=== PATIENT | male | born 1970 | race Caucasian/White ===

== ENCOUNTER 2025-04-16 23:16 | Emergency (ER) | payer OTHER, SELFPAY ==
[2025-04-16 23:18] VITALS: BP 95/79; PULSE 97; RESP 18; TEMP 37; O2SAT 94; BMI 21.4
[2025-04-16 23:20] VITALS: BP 95/79; PULSE 97; RESP 18; TEMP 37; O2SAT 94
--- NOTE | 2025-04-16 23:45 | EX.ED.DYSGE1 ---
HPI History of Present Illness Chief Complaint: Fatigue Detail of Chief Complaint: Fatigue and not feeling well Informant: patient Narrative Narrative: Patient presents to the emergency department complaint not feeling well since yesterday. She describes a mild cough that is mostly nonproductive. He denies fever. He is vomited twice today. Denies diarrhea. Denies significant abdominal pain. Also has some mild shortness of breath. He has history of COPD. Describes a headache. He describes generalized weakness. [facility] Medical History (Updated 04/17/25 @ 01:[address] Stephanie Erwin, DO) Collapsed lung COPD (chronic obstructive pulmonary disease) Home Medications ?Medication ?Instructions ?Recorded ?Last Taken ?Type albuterol sulfate 90 mcg/actuation 1 - 2 puff inhalation Q4H PRN PRN 04/25/15 Unknown Rx aerosol inhaler (Ventolin HFA) Wheezing ##1 levofloxacin 500 mg tablet 500 mg PO DAILY #7 tabs 04/25/15 Unknown Rx prednisone 20 mg tablet 60 mg (3 x 20 mg) PO DAILY ##15 04/25/15 Unknown Rx oxycodone-acetaminophen 5 mg-325 1 - 2 tab PO Q4H PRN PRN Pain #20 07/03/15 Unknown Rx mg tablet tabs tramadol 50 mg tablet 50 mg PO Q6H PRN PRN Pain #15 tabs 02/14/16 Unknown Rx levofloxacin 750 mg tablet 750 mg PO DAILY #6 tabs 04/17/25 Unknown Rx prednisone 20 mg tablet 20 mg PO BID #6 tabs 04/17/25 Unknown Rx Allergy/AdvReac Type Severity Reaction Status Date / Time ibuprofen AdvReac Nausea/Vom/ Verified 04/16/25 23:18 Diarrhea Social History Smoking Status: Current every day smoker tobacco type: cigarettes ROS ROS ED Review of Systems ROS Unobtainable: other Constitutional Constitutional ED: Reports lethargy; Denies chills, fever(s), sweats or weight loss Eyes Eyes: Denies blurry vision, change in vision or diplopia ENT ENT ED: Denies rhinorrhea or sore throat Cardiovascular Cardiovascular: Denies chest pain, orthopnea or racing heartbeat Respiratory/Chest Respiratory/Chest: Reports cough and dyspnea; Denies dyspnea on exertion, orthopnea or sputum Gastrointestinal Gastrointestinal: Reports nausea and vomiting; Denies abdominal pain or diarrhea Genitourinary Genitourinary ED: Denies dysuria, hematuria or urinary frequency Musculoskeletal Musculoskeletal: Denies arthralgias, back pain, myalgias or neck pain Integumentary Denies abscess, Abrasions or rash Neurologic Neurologic: Reports headache(s); Denies weakness Psychiatric Psychiatric: Denies anxiety, depression or suicidal thoughts Endocrine Endocrinology: Denies polydipsia, polyphagia or polyuria Hematologic/Lymphatic Hematologic/Lymphatic: Denies easy bleeding, easy bruising or lymphadenopathy Allergic/Immunologic Allergic/Immunologic ED: Denies mouth swelling, tongue swelling or urticaria EXAM Physical Exam Const Vital Signs: 04/16/25 23:18 04/16/25 23:20 04/16/25 23:49 Temperature 98.6 F 98.6 F Temperature Source Oral Oral Pulse Rate 97 97 Respiratory Rate 18 18 Respiratory Effort Normal Non-Labored Respiratory Depth Respiratory Pattern Normal Blood Pressure 95/79 95/79 Blood Pressure Mean 84 84 Pulse Ox 94 94 Oxygen Delivery Method Room Air Room Air 04/17/25 00:07 04/17/25 00:14 04/17/25 00:20 Temperature 98.6 F Temperature Source Oral Pulse Rate 82 66 Respiratory Rate 18 20 H Respiratory Effort Short of Breath Respiratory Depth Shallow Respiratory Pattern Normal Tachypnea Blood Pressure 112/70 Blood Pressure Mean 84 Pulse Ox 92 Oxygen Delivery Method Positive well nourished and well developed General Appearance ED: well developed and NAD HEENT Reports TM's clear and moist mucous membranes normocephalic and atraumatic; Negative for trauma or tenderness Tympanic Membrane ED: Yes TM's clear Eyes PERRL and EOMs intact bilaterally General Eye ED: Negative for pale conjunctiva or scleral icterus Neck no lymphadenopathy, supple and no JVD General: Negative for tenderness Chest Wall inspection of chest normal and palpation of chest normal Chest: Negative for tenderness Resp normal respiratory effort and clear to auscultation bilaterally Resp Narrative: Normal respiratory effort. No music publicist muscle use or retractions. Occasional faint expiratory wheezes noted. Effort and Inspection: Negative for respiratory distress or pain with movement Auscultation: wheezes; Negative for rhonchi or diminished lung sounds Cardio regular rate, regular rhythm, S1 normal heart sound, S2 normal heart sound and no murmurs Peripheral Pulses: pulses 2+ throughout GI normal to inspection, nondistended, normoactive bowel sounds, soft to palpation, non-tender, non-distended and no masses GI Narrative: Abdomen is nontender on exam. No rebound, rigidity, or peritoneal signs Back/Spine no CVA tenderness and no thoracic nor lumbar tenderness Extremity normal to inspection General Extremety ED: Negative for edema General Extremity: Negative for edema Neuro oriented x3, CN's II-XII intact bilaterally, no sensory deficits noted and gait normal Sensorium / Orientation: awake, alert, oriented to person, oriented to place and oriented to time Motor Exam: strength 5/5 throughout and strength abnormal Psych mental status grossly normal Skin no rashes or lesions noted and no wounds MDM MDM MDM Narrative Medical decision making narrative: Patient presents with cough headache shortness of breath symptoms that started yesterday. Cough at times productive of some yellow phlegm. He clinically looks well. He is not hypoxic. He has history of COPD. IV line established. He was given a DuoNeb aerosol. CBC with differential obtained showed white count 10.9 with hemoglobin 13.4 platelet count of 172. Chemistries unremarkable. COVID flu and RSV testing was negative. 1 view chest x-ray obtained showed bilateral lower lobe infiltrates. At this point he was started on Levaquin. He was started on prednisone. He will be dispensed an albuterol MDI. Suspect possibly early pneumonia. Lab Data Attestation: I reviewed the patient's lab results. Labs: Laboratory Results - last 24 hr 04/16/25 23:51 WBC 10.9 RBC 4.05 L Hgb 13.4 Hct 38.8 L MCV 95.8 H MCH 33.1 H MCHC 34.5 RDW Std Deviation 44.8 H RDW Coeff of Zahra 12.5 Plt Count 172 MPV 8.7 Immature Gran % (Auto) 0.500 Neut % (Auto) 77.7 H Lymph % (Auto) 12.2 L Mcdonough % (Auto) 9.0 Eos % (Auto) 0.1 Baso % (Auto) 0.5 Absolute Neuts (auto) 8.5 H Absolute Lymphs (auto) 1.33 Nucleated RBC % 0 Sodium 137 Potassium 4.0 Chloride 104 Carbon Dioxide 21.0 Anion Gap 13 BUN 15 Creatinine 1.25 H Estim Creat Clear Calc 63.12 Est GFR (MDRD) Non-Af 68 BUN/Creatinine Ratio 11.9 Glucose 117 H Calcium 8.8 Radiography Diagnostic Testing: Clinical Impression(s) from Imaging Studies Chest X-Ray 04/16/25 23:55 IMPRESSION: Possible bibasilar pneumonia, correlate for aspiration. Reading Location: [facility]-2 1 view chest x-ray obtained interpreted by myself as increased lung markings both lower lobes. Radiology in agreement. Discharge Plan Triage Chief Complaint: Fatigue Other Complaint: Shortness of Breath ED Provider: Stephanie Erwin Dx/Rx/DC Orders Clinical Impression: Pneumonia Instructions: ED Pneumonia (Adult) Prescriptions: New levofloxacin 750 mg tablet 750 mg PO DAILY Qty: 6 0RF prednisone 20 mg tablet 20 mg PO BID Qty: 6 0RF No Action prednisone 20 MG tablet 60 mg PO DAILY Qty: 15 0RF levofloxacin 500 MG tablet 500 mg PO DAILY Qty: 7 0RF albuterol sulfate [Ventolin HFA] 1 INHALER inhaler 1 - 2 puff inhalation Q4H PRN PRN (Reason: Wheezing) Qty: 1 0RF oxycodone-acetaminophen 1 TABLET tablet 1 - 2 tab PO Q4H PRN PRN (Reason: Pain) Qty: 20 0RF tramadol 50 MG tablet 50 mg PO Q6H PRN PRN (Reason: Pain) Qty: 15 0RF Primary Care Provider: Care Physician,No Primary Referrals: Azael Snyder MD [Med Staff - Active Staff] - 3-5 Days Care Physician,No Primary [Primary Care Provider] - Print Language: Luxembourgish Disposition Disposition: Home, Self Care
[2025-04-16] MEDS: 0.9% Normal Saline (1000mL) 1,000 ML 1000 ML IV (23:52)
--- NOTE | 2025-04-16 23:55 | RAD_ITS ---
PROCEDURE: CHEST 1 VIEW (PORTABLE) 04/17/2025 REASON FOR EXAM: DYSPNEA TECHNIQUE: Frontal view of the chest. COMPARISON: No FINDINGS: Severe bullous emphysema and smoking-related interstitial lung disease. Suspected bibasilar consolidation. No effusion or pneumothorax. Asymmetric right apical pleural thickening. Normal heart size. RAD/Chest 1 View (Portable) IMPRESSION: Possible bibasilar pneumonia, correlate for aspiration. Reading Location: [place] [id number]
[2025-04-16 23:58] LABS: Absolute Lymphocyte Count 1.33 X10^3/uL (0.83-4.51); Absolute Neutrophil Count 8.5 X10^3/uL (2.0-7.7); Basophil# 0.06 X10^3/uL; Basophil% 0.5 % (0-1); Eosinophil# 0.01 X10^3/uL; Eosinophils% 0.1 % (0-5); Hematocrit 38.8 % (40-54); Hemoglobin 13.4 g/dL (13.0-16.5); Lymphocyte # 1.33 X10^3/ul (0.83-4.51); Lymphocyte % 12.2 % (19-41); Mean Corp Hgb Conc 34.5 g/dL (32-36); Mean Corpuscular Hgb 33.1 pg (27.0-32.0); Mean Corpuscular Volume 95.8 fL (80-94); Mean Platelet Vol. 8.7 fl (6.2-12.0); Monocyte# 0.98 X10^3/uL; NRBC Flagged by Analyzer 0 % (0-5); Neutrophil % 77.7 % (47-70); Platelet Count 172 K/mm3 (150-450); RBC Distribution Width CV 12.5 % (11.6-14.6); RBC Distribution Width SD 44.8 fl (35.1-43.9); Red Blood Count 4.05 M/mm3 (4.6-6.2); White Blood Count 10.9 K/mm3 (4.4-11.0)
[2025-04-17] MEDS: Ipratropium/Albuterol Sulfate 3 ML AMPUL.NEB INHALATION (00:06)
[2025-04-17 00:07] VITALS: PULSE 82; RESP 18
[2025-04-17 00:18] LABS: Anion Gap 13 (5-15); BUN 15 mg/dL (4-19); BUN/Creat Ratio 11.9 RATIO (10-20); Calcium,Total 8.8 mg/dL (7.6-11.0); Chloride 104 mmol/L (98-108); Creatinine, Serum 1.25 mg/dL (0.70-1.20); EST Glomerular Filtration Rate 68 (>60); Estimated Creatinine Clearance 63.12 ml/min (50-250); Glucose 117 mg/dL (70-99); Sodium Level 137 mmol/L (133-145)
[2025-04-17 00:20] VITALS: BP 112/70; PULSE 66; RESP 20; TEMP 37; O2SAT 92
--- OUTSIDE RECORDS SUMMARY | 2025-04-17 00:30 | XMS RPT_ITS | CCD ---
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 Name Role Phone Unavailable Primary Care Provider UnavailRODRIGO Calloway Attending Unavailable TRUDY BARRETT Attending Unavailable Stephanie Erwin Attending Unavailable Care Physician, No Primary Primary Care Unava ilable Allergies Allergy Classification Reported Allergen(s) Allergy Type Date of Onset Reaction(s) Facility (2 sources) Ibuprofen Drug Allergy 05-25-2014 Nausea Only [facility] (1 source) Ibuprofen Drug Allergy 04-16-2025 [facility] Repository Medications Current Medications Medication Drug Class(es) Dates Sig (Normalized) Sig (Original) clindamycin 300 mg oral capsule (2 sources) Lincosamide Antibacterial Start: 05-30-2022 End: 06-09-2022 clindamycin (CLEOCIN) 300 MG capsule Take 1 capsule by mouth in the morning and 1 capsule at noon and 1 capsule before bedtime. Do all this for 10 days. . 30 capsule 0 05/30/2022 06/09/2022 Active Start: 05-30-2022 End: 05-30-2022 clindamycin (CLEOCIN) capsul e 300 mg ivermectin 3 mg oral tablet (2 sources) Antiparasitic, Pediculicide Start: 06-19-2021 ivermectin 3 MG tablet 4 tablets daily x5 days 20 tablet 0 06/19/2021 Active 1 ml ketorolac tromethamine 30 mg/ml cartridge (2 sources) Nonsteroidal Anti-inflammatory Drug, Cyclooxygenase Inhibitor Start: 05-30-2022 ketorolac (DINA DOL) injection 30 mg Start: 05-30-2022 take 1 tablet by neville every eight hours as needed for pain ketorolac (TORADOL) 10 MG tablet Take 1 tablet by mouth every 8 hours as needed for Pain 15 tablet 0 05/30/2022 Active Completed/Discontinued Medications Medication Drug Class(es) Dates Sig (Normalized) Sig (Original) 1 ml dexamethasone phosphate 10 mg/ml injection (2 sources) Corticosteroid Start: 06-19-2021 End: 06-19-2021 dexamethasone (PF) (DECADRON) injection 6 mg Start: 06-19-2021 End: 06-24-2021 take 1 tablet by mouth once daily at breakfast dexamethasone (DECADRON) 6 MG tablet Take 1 tablet by mouth daily (with breakfast) for 5 days 5 tablet 0 06/19/2021 06/24/2021 Active 50 ml sodium chloride 9 mg/m l injection (1 source) Start: 06-19-2021 End: 06-19-2021 0.9 % sodium chloride bolus Problems Problem Classification Problem Date Documented Da te Episodic/Chronic Phlebitis; thrombophlebitis and thromboembolism (1 source) Thrombophlebitis of superficial vein of left lower limb; Translations: [Phlebitis and thrombophlebitis of superficial vessels of left lower extremity] Episodic Viral infection (1 source) Disease caused by 2019-nCoV; Translations: [COVID-19] Episodic Results Test Name Value Interpretation Reference Range Facility CBC W/Diff, Automatedon 03-20 Absolute Lymph 1.33 X10 3/uL Normal 0.83-4.51 [facility] Comment on above: Performed By: #### L 100.0100 #### [facility] [address] [place], [address] Absolute Neut 8.5 X10 3/uL High 2.0-7.7 [facility] Comment on above: Performed By: #### L 100.0100 #### [facility] [address] [place], [address] Basophils/100 WBC (Bld) 0.5 % Normal 0-1 [facility] Comment on above: Performed By: #### L 100.0100 #### [facility] [address] [place], [address] Eosinophils/100 WBC (Bld) 0.1 % Normal 0-5 [facility] Comment on above: Performed By: #### L 100.0100 #### [facility] [address] [place], [address] Erythrocyte distribution width (RBC) [Ratio] 12.5 % Normal 11.6-14.6 [facility] Comment on above: Performed By: #### L 100.0100 #### [facility] [address] [place], [address] Hematocrit (Bld) [Volume fraction] 38.8 % Low 40-54 [facility] Comment on above: Performed By: #### L 100.0100 #### [facility] [address] [place], [address] Hemoglobin (Bld) [Mass/Vol] 13.4 g/dL Normal 13.0-16.5 [facility] Comment on above: Performed By: #### L 100.0100 #### [facility] [address] [place], [address] IG% 0.500 Normal 0.0-0.9 [facility] Comment on above: Result Comment: IG% - Immature Granulocytes (promyelocytes, myelocytes and metamyelocytes) > 1% indicates that a LEFT SHIFT is Present. Performed By: #### L 100.0100 #### [facility] [address] [place], [address] Lymphocytes/100 WBC (Bld) 12.2 % Low 19-41 [facility] Comment on above: Performed By: #### L 100.0100 #### [facility] [address] [place], [address] MCH (RBC) [Entitic mass] 33.1 pg High 27.0-32.0 [facility] Comment on above: Performed By: #### L 100.0100 #### [facility] [address] [place], [address] MCHC (RBC) [Mass/Vol] 34.5 g/dL Normal 32-36 [facility] Comment on above: Performed By: #### L 100.0100 #### [facility] [address] [place], [address] MCV (RBC) [Entitic vol] 95.8 fL High 80-94 [facility] Comment on above: Performed By: #### L 100.0100 #### [facility] [address] [place], [address] Monocytes/100 WBC (Bld) 9.0 % Normal 0-10 [facility] Comment on above: Performed By: #### L 100.0100 #### [facility] [address] [place], [address] Neutrophils/100 WBC (Bld) 77.7 % High 47-70 [facility] Comment on above: Performed By: #### L 100.0100 #### [facility] [address] [place], [address] Nucleated RBC (Bld) [#/Vol] 0 10*3/uL Normal 0-5 [facility] Comment on above: Performed By: #### L 100.0100 #### [facility] [address] [place], [address] Platelet mean volume (Bld) [Entitic vol] 8.7 fL Normal 6.2-12.0 [facility] Comment on above: Performed By: #### L 100.0100 #### [facility] [address] [place], [address] Platelets (Bld) [#/Vol] 172 10*3/uL Normal 150-450 [facility] Comment on above: Performed By: #### L 100.0100 #### [facility] [address] [place], [address] RBC (Bld) [#/Vol] 4.05 10*6/uL Low 4.6-6.2 [facility] Comment on above: Performed By: #### L 100.0100 #### [facility] [address] [place], [address] RDW SD 44.8 fl High 35.1-43.9 [facility] Comment on above: Performed By: #### L 100.0100 #### [facility] [address] [place], [address] WBC (Bld) [#/Vol] 10.9 10*3/uL Normal 4.4-11.0 [facility] Comment on above: Performed By: #### L 100.0100 #### [facility] [address] [place], [address] VL DUP LOWER EXTREMITY VENOU S LEFTon 05-30-2022 VL DUP LOWER EXTREMITY VENOUS LEFT Radiology exam is complete. No Radiologist dictation. Please follow up with ordering provider. Final result Normal [facility] Radiology exam is complete. No Radiologist dictation. Please follow up with ordering provider. [facility] Coding Summary.on 07-11-2021 Coding Summary. [id number] Gh0bWw+PGhlYWQ+PE1FV XXxL07cvTGryC9RY3zKD Y4BJKQQJQVZQI2TPI9ug OY5FAxgG1BhvhEd SfygwVPdPD61QOx6OYB9 oUxoJBuhfU6xdGYaM8d8 StAoRL68zE89RTbmRLVj GtT2ZlUbqoulcERm P2juDuFrsWSbEow+PHRh YmxlIHdpZHRoPScxMDAl PeBhiZaiGE9cPx4xMVPd LWNvbGxhcHNlOiBj n2suFZZgXGvaYR5ueEbq F8FrrGD8VDXid6z9Sa10 dHI+NLCzTQD4jRjvJGkg t580LsRzt4bnQFW7 bPLoYOexLXS0Z46su7B1 UYCoSEXkSKZ2oXV2lK8n gUwgzgvtD2StkXSgEgS8 QGW9kERqwG7fwIdf rdtsyL0fDrh+P14EKZ1A VPIHJI0PGgo8N6UgJfuz dHI+GO90ITLsXS36yTRb oMRrm1nxtTm8XjSz IGDuRZK7uVcaPHhnj6Si TNNeR00lrEGvy3S8ZYAf mBcqdAMgYgRtqTS0iT5n QRzbhegcf5zbpyzh Oqeoc1ohmg78vX77X22g CHjgIUHiJLO5DWHjPIYi iZddoy7gwR6mOg0+IDxj p4agu9ovkLw9LpNx CLJamhJccSnyYQG5a5Lb Yr48N3BjfDyoq5KlWol3 yd24tKPfx5C8pSC5QLqn XKSpwU9vDCkaRsM9 BWUrMrOjeT78aHYjTPhv Uy5vlRzzoEcdTD5jIQAu emjjKTCmfR5pKKTvdJMl eJpxWX5dAXOhndwc g208DvPjPME9YNRbgBJc I2ZhxS1jHfIdJHYaKYZh B5DzgYRqEWcyY159WKmm JmP0ZMFhgySsW4Nb OCTiaKswStB6u6J7Mh9A h6CvyqiqDRI4IIpaYRV6 QpVpDfRqLyU1Q1AfWob8 CMMxhErhZL2dD4Mg BAAszdrozffqjCE3VQCd SLSczB83qSPcSGrpAa8l d2A8p809OYZeVIXulY94 Qf1mxAyxZFGxvPMT sS2qcnkqd2pdnnooTqXm OUZrBHq4ADj6UKBmbOgm TjBsBWD4XsQ2WUT5nCMk bJ0mfKswybjthZ0r Oyc+T37ojU2eCUS2MZG9 sdsjDSMprqHoTK10NI03 E0CsMsxviKZmtOQ+PGRp rtCwaAqfVI7aFkLp q6hrk7ScFBlbE6HnKYIb BBmpGca2YELgXTH5pOP7 nP4xBBPzHFexd9S2qBP0 X4ZbvdTxgc6hl7im MZNrRIztJ64gzXRcs7I5 WNBeeAE3GCLvtChhHhFz fZ34Ukl+JMKzvYdsz5Pc Eqmwp1dhe7qgcOm0 IjMwJSIgdmFsaWduPSJ0 d3PmDl97D23aMUdmGINz YWWtKAJcSCOjlFcmot5v eO5kWb2+PGNvbCB3 qOW3tY5zNBXvFpK2OEkp J757JiKebRZpNkppr9qp y6kyeDw9ExOyHCHcoyXx sCkaYPQ7l5AdEj02 H69sLAjrEFDlZWExSINl XNWpoQkuvh5rfX4dTk8+ EV4zt6visv18iN76aEW+ UVHvPOY1bEjqMVrb MVFkuT9gULhjXrL9HNIm GhDfxZ23vCGxOAogNw6j kKvurHkfTR6sSCCovjuf e007TuWew5bhJDEx kKVsZTpiUFB3J13yq5A6 AMMhROOyEGJ4aYW5wA5j bGlnbjogbGVmdDsgdmVy ePuxQAgdVZpcQ721 IHRvcDsnPlBhdGllbnQg ApMbONz4F0IwIzc5KNKa fDpwFB3fdZRmQVixIp3t uVrreOqoAH7eEYUy terka762TnQfx8ipYRQo qAKiXXheKNZ3J71lk4M5 KLOsIOQwUZC5hFA5zC4t bGlnbjogbGVmdDsg waNebRfdEMoyFXpvI612 IHRvcDsnPkJpcnRoIERh vWQ1UW15QU42bULdo4V2 aQZ8B0JdOAPeqjab pytvlGI5VXGtXFSwrX25 Gx5plNvuGi9iLXBrXHM8 QJUlvSUuY8AgyW5mJxAe WHGhRVVeM3WpoDGa DIyfT829THulPiY2JXFs zdUrP4GrBADxzXvoOdN1 y1E1Bl4YZ8N8VJ82IN80 kSDes1C1oZM0N1Gj OPDdzjtvhxjvjPC9IQDh BNSdyN79Ox7tgWpiBy8v DMGySMP6ZNAdqJHqL0Op gN2gPhUbRHGeDGOt L9NxgVPeJVxnR839OHua MrT1IEGantUuR1QaSIMw iXqgUeE4u7C4Ua8FSRr8 JV63XL41iGWsl4R9 rSJ9U2SdAHJlblqrnbfu yHA6UORjKGXvpS91Ol1g eAwpOo9cWEGrWUO3OBZm wRHjM1AzbC1vLoYw XOXwQMRdU3QqvPJjTKid Z168VSbyVrT0RODpcsYu L6CcDJWimYdhXxV1u8F3 Pj3ISFUjQY45EQI2 aVE1MP00MG92B0EaJdte dGFibGU+PHRhYmxlIHdp ZHRoPScxMDAlJyBzdHls RV2rXw8uIRYpLEWy fDiulNYwRcTyh7ucCBYn MDdtOQ8bfIhcO4AidHR7 TEAbv6b1Nd36R20gW0Mx dXA+QJBzxXZ8oUO0 qO3rRvZfEdU2TIvcK976 AsUzaABuOewvj5lns8gx hIi8NyT4XJIxczZvzIqx WWI5x8WtGw82S42h IHdpZHRoPSIxNSUiIHZh lExwxj6dsR1tSp8+PGNv vVS4aLO4qZ8oQgAqSxQ2 LEntQ001ApGcsTRv Eckam7vyl8ymnWm9QhGr QXMeipIxvJmbTMO4u1Gg Hh37U9MbrRigq5QvAav3 hp28oIExl6F2rDW0 C3XvMMDirbvqiIKyuAqw HE3mOODqajibMERxpF3j OLGsG5o6QtGnXtI0VZia J5KdhmK6AUYgeBTb YNzwKRT9S40bu9N9CUKf DFVyWVR1mND6sA7czCse bjogbGVmdDsgdmVydGlj RRijODdcU982UWKh dLzsNKHceU0uSEJalMKq uSslYH3jKETurjajXvXL RVZFTlMsIERBVklEIEM8 P6WyAdk0PYDjkMrc SA2jrOJqFHptSe9noGwg wTklAA6oBJVggpmsEJQf kU2pVFRplSUjpYjwRI9j ICQrvzduy601DbPg NCY8DUJdwTAkQ2QdaU2u EgLcZYHeIDUdT0EoiWAt IPccH179OXmeDjR7HJOo xyRaB1HlTWAytXsc TvB5r2Y4Yt1uSw0rAR8n RBU9ZB09HE34oGRjk4R4 bRK4K3OmNBGuhpmyrrvd jTP7LOHiJKYeoA40 wOJvZTfpRv5pw0H8m414 OMJoRFNnpO27Ae0vrLdi XLFuvFMSiE8fzpyrt4jo cjogIzAwMDAwMDt0 QBv4MCQeiZxqPcByFHA4 CgS9JZS3bRWwxW0ziDey wxtsvE2wXiw+NTIgWWVh nwU9W7KaHwk1VJMv pXzrQX3hwEVmIYzoSv1n sDaqoYkkOT0pRYWlzwsm BTUbeG6qFNWzaUCbcPlr KD8tRWYwaleml845 HkVmXGV0MZHllTIaL0Zg dT9xHpRxDHKlGZLzR8Na oLLfRDwjC705AVokByL9 AWYltcNlK4FmPFIv rMhmNrR1i3P5Ym1WSFck US61HS92yRNys2Q2lWY0 A2AlWFXaeighnuhpfWO4 CDBtDWKmuB14sWGk RIsgGb4pf6K3z083EZHp PXIpcU23Kw2pxVqiTFYk fHXMmN3oxsfiu7yjoesj XhGcPYHsKXb9YYn2 YSIlrPirRfXxKCX8CpO0 XQO8pQEmlJ7fqRpdwwcx dP8bExd+UQ1lwzhykvD1 CY90QC58Z0CuSwvh dGFibGU+PHRhYmxlIHdp ZHRoPScxMDAlJyBzdHls OM9hGc6hCWLfOSWgoAgc dOUcNrLvt3fcKWYh XWfqLI3bsZhlW4TooMS9 LVMss2j3Tf57P15pM4Zs dXA+KHLmpKB9yFR1vN9q IoMgMhF9XZtqE562 XgXsiWIoKchfh8rvz1an wRj7LaKxREJindHblRmc TKZ2e0XqJe54L29yKMqd ZHRoPSIyMCUiIHZh oZircv9ycR9iUg0+PGNv vGV1wIR6tF7kFfXrHyX7 ZJpaY670NmVkqPWsBove T85cJ6XikTM+PHRy Leb5BIDtpAniPN8dgTAs VZaqJy3lBAS7YzThHnSc FIxhI5KeFLKdauvglyzz aEU0RJTaXSNysF71 Pp1peDyaXk8oCKDrRIM8 PCKtoODbK4BbgB9mSuPv LVVuUWCpK5PbvKOaDZlz T423KByxZrQ0GTCw tbGmQ7SjDOPzpWhqHlB9 b7X6Zu2PvHtjjEVzBR0w XdDzMJm8X4ClHvo2ZGEc dYhyAJ8apAUpNYch Zn4yjVioiUgiXX3cZOYy ancga455GhTad8tpSNSr yVZeVBytAHU0C29rw8L8 AVEpWQJmAZY6zNU7 dZ3ffTfmdzznaONfaYdk toEzcPbbVJgjOJyyY661 VPLgmAxfZmYCBzp2H1Dt Cnk5AHUkeUbvEE7o xGQsAJpqNq3jlEjreDra HE3wMNQinbwfp821PjXe l4ftBRUjdEEcENznGLT7 C14fu0J7BQGuZAOo NFP7oWJ0iD3tkMfkbrxh bGVmdDsgdmVydGljYWwt QRptE390OIGawXeiEb3V Fgu6L8EeRnd5YOFr gEjjHE5cvCUpCZuiIn8m bJnyoEzoHP4iHAUouxau c556PfCrm7piXJYbcHNj XVfeJYD6X57vo3K1 MSBeEZToPEA7wAZ5dH8n bGlnbjogbGVmdDsgdmVy sEdzUCzeZVplQ340RFNx cDsnPlBheWVyOjwv dGQ+CN70yn98W9HkTxww Cnz1XSPhNFX6cUF5vU1l RSYdXZskl7S6vGY3G4Nt diFwbx6ns8cbNZAo ZTog (more content not included)... Normal [facility] ED Note-Physicianon 07-06-20 ED Note-Physician Basic Information Time Seen: Memo Saldaña PA-C 07/05/2021 10:40 Chief Complaint Pt reports SOB and fatigue since yest. Non-prod cough. hx of COPD and smoker. Pt reports covid + contact recently. History of Present Illness 50-year-old male comes into the ED for COVID-19 testing. He states over the last few days he has felt generally unwell and is concerned for COVID-19, but no recent exposure. He denies any significant chest pain. No shortness of breath. Fever, chills, nausea, vomiting. He does have underlying COPD but states his breathing feels at his baseline. No prior treatments. No other complaints or concerns. Review of Systems A 10 point review of systems is negative except as noted above. Medical and Surgical History: Reviewed and noted Social history: Lives at home Tobacco: Current Physical Exam Vitals & Measurements T: 36.7 ?C (Oral) HR: 78(Peripheral) RR: 18 BP: 117/82 SpO2: 97% HT: 177.8 cm HT: 177.8 cm WT: 66 kg WT: 66.0 kg BMI: 20.88 Nurses notes and vital signs reviewed and patient is not hypoxic. General: The patient appears well, resting comfortably. Skin: Warm, dry. Head: Atraumatic. Neck: No JVD. Eye: Normal conjunctiva. Ears, Nose, Mouth, and Throat: Moist mucous membranes. Cardiovascular: Strong distal pulses. Chest wall: Respiratory: Respirations are nonlabored. Back: Normal range of motion. Musculoskeletal: Normal ROM with no gross deformity. Gastrointestinal: Urological: Neurological: Awake and alert. No focal deficits. Follows commands. Psychiatric: Cooperative. Medical Decision Making Patient resting comfortably examination. Denies chest pain or shortness of breath. Denies fever or chills. He has stable vital signs. Covid testing is negative. He is discharged home PCP follow-up. Patient was encouraged to return to the ED if symptoms worsen or change. Assessment/Plan Exposure to COVID-19 virus (Z20.822: Contact with and (suspected) exposure to COVID19) Orders: Rapid COVID Antigen ([facility]) Disposition Plan Patient Discharge Condition Disposition: Discharged home Condition: Improved and stable Counseled: Patient and/or family were counseled to workup, results, treatment plan and follow-up recommendations Discharge Prescription List Prescriptions No active prescription medications Follow-up With When Contact Information Raysa Reeder In 3 days 07/08/[address] [place] [phone] Business (1) Additional Instructions: Patient Education COVID-19 Frequently Asked Questions Attestation Patient seen and evaluated by the physician children's nursery assistant. Attending physician was present in the emergency department and supervised care. This report was transcribed using voice recognition software. Every effort was made to ensure accuracy, however, inadvertently computerized product mgr mistakes may be present. Appropriate healthcare PPE was used in evaluating this patient. The patient was placed in a mask. The healthcare provider was wearing mask, gloves, googles and utilizing proper hand hygiene. All equipment was properly cleansed. Problem List/Past Medical History Ongoing Smoker Historical Spontaneous pneumothorax Medications Inpatient No active inpatient medications Home Protonix 40 mg Tab-EC, 40 mg= 1 tab(s), Oral, Daily Allergies ibuprofen (upset stomach) Social History Alcohol - Denies Alcohol Use, 04/29/2019 Substance Abuse - Denies Substance Abuse, 04/29/2019 Tobacco - High Risk, 04/29/2019 10 or more cigarettes (1/2 pack or more)/day in last 30 days Tobacco Use:., 07/05/2021 10 or more cigarettes (1/2 pack or more)/day in last 30 days Tobacco Use:. Cigarettes, Ready to change: No., 04/29/2019 Lab Results Rapid COVID Ag: Not Detected (07/05/21 10:47:00) Rapid COV Int NEG Ctl: Pass (07/05/21 10:47:00) Rapid COV Int POS Ctl: Pass (07/05/21 10:47:00) First Test: Unknown (07/05/21 10:47:00) Employed in Healthcare: NO (07/05/21 10:47:00) Symptomatic as defined by CDC: YES (07/05/21 10:47:00) Hospitalized?: Unknown (07/05/21 10:47:00) ICU: NO (07/05/21 10:47:00) Resides in a Congregate Care Setting: NO (07/05/21 10:47:00) ?: NO (07/05/21 10:47:00) Diagnostic Results No qualifying data available. EKG Results EC07/05/21: SINUS RHYTHM NORMAL QTC NO STEMI NORMAL ECG Signed By: Bill Boogie DO 07/05/2021 11:00:29 Normal [facility] Comment on above: Result Comment: Elec tronically Signed By: Memo Saldaña PA-C\.br\Date and Time Signed: 07/05/21 13:21 EDT\.br\Electronically Co-Signed By: Bill Boogie DO.lai\Date and Time Co-Signed: 07/06/21 16:40 EDT Consent for Treatmenton 06-19 Consent for Treatment [id number] #1.00CD:127 Normal [facility] Discharge Instructionson Discharge Instructions [id number] #1.00CD:127 Normal [facility] ED Clinical Summaryon 2020 ED Clinical Summary [place] [id number] ED Clinical Summary Person Information Name: REYNA LONGO Gracie/[facility] Age: 50 Years : 1970 Sex: Male Language: Slovenian PCP: Lilli JAVIER, Raysa Marital Status: Single Visit Id: Visit Reason: Cough; Shortness of breath; NAUSEA, SOB, FATIGUE Speciality: Acuity: 3 Enc Type: Emergency Med Service: Emergency Arrival: 07/05/2021 10:28:12 Discharge: 07/05/2021 11:38:50 LOS: 000 01:10 Checkin: 07/05/2021 10:28:12 Checkout: 07/05/2021 11:38:50 Dispo Type: Home (Routine DC) EVENTS: Event Name Event Status Request Date/Time Start Date/Time Complete Date/Time Arrive Complete 07/05/2021 10:28:12 07/05/2021 10:28:12 07/05/2021 10:28:12 Document Home Meds Request 07/05/2021 10:28:12 Triage Complete 07/05/2021 10:28:12 07/05/2021 10:36:21 07/05/2021 10:36:21 Bed Assign Complete 07/05/2021 10:32:45 07/05/2021 10:32:45 07/05/2021 10:32:45 Dr Exam Complete 07/05/2021 10:32:45 07/05/2021 10:40:09 07/05/2021 10:40:09 RN Exam Complete 07/05/2021 10:32:45 07/05/2021 10:45:10 07/05/2021 10:45:10 EKG Complete 07/05/2021 10:33:15 07/05/2021 10:38:30 Patient Care Request 07/05/2021 10:36:22 Patient Isolation Request 07/05/2021 10:36:22 Patient Care Request 07/05/2021 10:37:16 Patient Isolation Request 07/05/2021 10:37:16 Registration Complete 07/05/2021 10:40:09 07/05/2021 11:00:44 07/05/2021 11:00:44 Dr Exam Complete 07/05/2021 10:40:24 07/05/2021 10:40:24 07/05/2021 10:40:24 Pending Labs Complete 07/05/2021 10:40:26 07/05/2021 11:08:45 Lab Complete 07/05/2021 10:40:26 07/05/2021 11:08:45 Reg Complete Request 07/05/2021 11:00:44 Discharge Complete 07/05/2021 11:25:44 07/05/2021 11:39:01 07/05/2021 11:39:01 Transfer Complete 07/05/2021 11:39:01 07/05/2021 11:39:01 07/05/2021 11:39:01 ADDRESS: [address] [place] [id number] [facility] DOC NOTES: MEDICAL INFORMATION: Prescriptions Given: Medications to Continue with No Changes Other Medications pantoprazole (Protonix 40 mg Tab-EC) 1 Tablets By Mouth every day. Refills: 0. PATIENT EDUCATION INFORMATION: Instructions: COVID-19 Frequently Asked Questions Follow up: With: Address: When: Raysa Reeder [address] [place] [phone] Business (1) In 3 days 07/08/2021 DIAGNOSIS: Exposure to COVID-19 virus Normal [facility] ED Patient Summaryon ED Patient Summary [address] [address] Patient Discharge Instructions Person Information Name: REYNA LONGO Age: 50 Years Arrival Date: 07/05/2021 10:28:12 Discharge Diagnosis: Exposure to COVID-19 virus Primary Care Physician: Raysa Reeder MD Provider Information Primary Provider: Bill Boogie DO Advanced Washer Operator:Memo Saldaña PA-C The exam and treatment you received in the Emergency Department were for an urgent problem and are not intended as complete care. It is important that you follow up with a doctor, nurse practitioner, or physician?s children's nursery assistant for ongoing care. If your symptoms become worse or you do not improve as expected and you are unable to reach your usual health care provider, you should return to the Emergency Department. We are available 24 hours a day. REYNA LONGO has been given the following list of patient education materials, prescriptions and follow-up instructions: Follow-up Instructions: With: Address: When: Raysa Reeder [address] [place], [place] [phone] Business (1) In 3 days 07/08/2021 In the event that this physician does not participate in your insurance network, please consult with your insurance company to find a nearby participating provider. Patient Education Materials: COVID-19 Frequently Asked Questions A MESSAGE TO ALL PATIENTS REGARDING OPIOIDS PRESCRIPTION OPIOIDS: WHAT YOU NEED TO KNOW Prescription opioids can be used to help relieve [id number] pain and are often prescribed following a surgery or injury, or for certain health conditions. These medications can be an important part of the treatment but also come with serious risks. It is important to work with your healthcare provider to make sure you are getting the safest, most effective care. WHAT ARE THE RISKS AND SIDE EFFECTS OF OPIOID USE? Prescription opioids carry serious risks of addiction and overdose, especially with prolonged use. An opioid overdose, often marked by slowed breathing, can cause sudden . The use of prescription opioids can have a number of side effects as well, even when taken as directed: ? Tolerance?meaning you might need to take more of the medication for the same pain relief ? Physical dependence?meaning you have symptoms of withdrawal when a medication is stopped ? Increased sensitivity to pain ? Constipation ? Nausea, vomiting, and dry mouth ? Sleepiness and dizziness ? Confusion ? Depression ? Low levels of testosterone that can result in lower sex drive, energy, and strength ? Itching and sweating RISKS ARE GREATER WITH: ? History of drug misuse, substance use disorder, or overdose ? Mental health conditions (such as depression or anxiety) ? Sleep apnea ? Older age (65 years and older) ? Avoid alcohol while taking prescription opioids. Also, unless specifically advised by your health care provider, medications to avoid include: ? Benzodiazepines (such as Xanax or Valium) ? Muscle relaxants (such as Soma or Flexeril) ? Hypnotics (such as Ambien or Lunesta) ? Other prescription opioids KNOW YOUR OPTIONS Talk to your health care provider about ways to manage your pain that don?t involve prescription opioids. Some of these options may actually work better and have fewer risks and side effects. Options may include: ? Pain relievers such as acetaminophen, ibuprofen, and naproxen ? Some medication that are also used for depression or seizures ? Physical therapy and exercise ? Cognitive behavioral therapy, a psychological, goal-directed approach, in which patients learn how to modify physical, behavioral, and emotional triggers of pain and stress. IF YOU ARE PRESCRIBED OPIOIDS FOR PAIN: ? Never take opioids in greater amounts or more often than prescribed. ? Follow up with your primary health care provider. o Work together to create a plan on how to manage your pain. o Talk about ways to help manage your pain that don?t involve prescription opioids. o Talk about any and all concerns and side effects. ? Help prevent misuse and abuse o Never sell or share prescription opioids. o Never use another person?s prescription opioids. ? Store prescription opioids in a secure place and out of reach of others (this may include visitors, children, friends, and family). ? Safely dispose of unused prescription opioids: Find your community drug take-back program or your pharmacy mail-back program, or flush them down the toilet, following guidance from the Food and Drug Administration (www.fda.gov/Drugs/R [employer]ourcesForYou). ? Visit www.cdc.gov/drugover dose to learn about the risks of opioids abuse and overdose. ? If you believe you may be struggling with addiction, tell your health youth care specialist and ask for guidance or call SAMHSA?S National Helpline at [phone]-FNZN. (more content not included)... Normal [facility] Prescriptions/Work Noteson 0 07-05-2021 Prescriptions/Work Notes [id number] #1.00CD:127 Normal [facility] Rapid COVID Antigen (MC)on 07-05-2021 Rapid COV Int NEG Ctl Pass Normal [facility] Comment on above: Performed By: #### 2 [id number] #### [facility] [address] [place] [address] Rapid COV Int POS Ctl Pass Normal [facility] Comment on above: Performed By: #### 2 [id number] #### [facility] [address] [place] [address] SARS-CoV-2 (COVID-19) RNA ONEYDA+probe Ql (Unsp spec) Not detected Normal Not Detected [facility] Comment on above: Result Comment: The ThermoCeramix System for Rapid Detection of SARS-CoV-2 is a chromatographic digital immunoassay intended for the direct and qualitative detection of SARS-CoV-2 nucleocapsid antigens in nasal swabs from individuals who are suspected of COVID-19 by their healthcare provider within the first five days of the onset of symptoms. Negative results should be treated as presumptive, do not rule out SARS-CoV-2 infection and should not be used as the sole basis for treatment or patient management decisions, including infection control decisions. Negative results should be considered in the context of a patient?s recent exposures, history and the presence of clinical signs and symptoms consistent with COVID-19, and confirmed with a molecular assay, if necessary, for patient management. For in vitro diagnostic use. In the [place], only for use under an Emergency Use Authorization. In the [place], this test has not been FDA cleared or approved; this test has been authorized by FDA under an EUA for use by authorized laboratories; use by laboratories certified under the CLIA, 42 U.S.C. ?263a, that meet requirements to perform moderate, high, or waived complexity tests and at the Point of Care (POC), i.e., in patient care settings operating under a CLIA Certificate of Waiver, Certificate of Compliance, or Certificate of Accreditation. This test has been authorized only for the detection of proteins from SARS-CoV-2, not for any other viruses or pathogens; and, in the [place], this test is only authorized for the duration of the declaration that circumstances exist justifying the authorization of emergency use of in vitro diagnostics for detection and/or diagnosis of the virus that causes COVID-19 under Section 564(b)(1) of the Act, 21 U.S.C. ? 360bbb-3(b)(1), unless the authorization is terminated or revoked sooner. Performed By: #### 2 [id number] #### [facility] [address] [place] [address] Employed in Healthcare NO Normal [facility] Comment on above: Performed By: #### 2 [id number] #### [facility] [address] [place] [address] First Test Unknown Normal [facility] Comment on above: Performed By: #### 2 [id number] #### [facility] [address] [place] [address] Hospitalized? Unknown Normal [facility] Comment on above: Performed By: #### 2 [id number] #### [facility] [address] [place] [address] ICU NO Normal [facility] Comment on above: Performed By: #### 2 [id number] #### [facility] [address] [place] [address] ? NO Normal [facility] Comment on above: Performed By: #### 2 [id number] #### [facility] [address] [place] [address] Resides in a Congregate Care Setting NO Normal [facility] Comment on above: Performed By: #### 2 [id number] #### [facility] [address] [place] [address] Symptomatic as defined by CDC YES Normal [facility] Comment on above: Performed By: #### 2 [id number] #### [facility] [address] [place] [address] CBC Auto DifferentialOrdered By: Trudy Barrett on 06-19-2021 Absolute Eos # 0.00 [facility] Work Phone: Absolute Immature Granulocyte NOT REPORTED [facility] Phone: Absolute Lymph # 1.00 [facility] Work Phone: Absolute Rapides # 0.40 [facility] Work Phone: Basophils (Bld) [#/Vol] 0.00 10*3/uL [employer] Work Phone: Basophils/100 WBC (Bld) 1 % 0 - 2 % M [employer] Work Phone: Differential Type YES [facility] Work Phone: Eosinophils/100 WBC (Bld) 0 % 0 - 5 % [facility] Work Phone: Hematocrit (Bld) [Volume fraction] 46.2 % 41 - 53 % [employer] Work Phone: Hemoglobin.gastrointesti nal spec 1 Ql (Stl) 15.8 g/dL 13.5 - 17.5 g/dL [employer] Work Phone: Immature Granulocytes NOT REPORTED 0 % M [employer] Work Phone: Interpretation and review of laboratory results Abnormal [employer] Phone: Lymphocytes/100 WBC (Bld) 25 % 13 - 44 % [employer] Phone: MCH (RBC) [Entitic mass] 33.2 pg 26 - 34 pg [employer] Work Phone: MCHC (RBC) [Mass/Vol] 34.2 g/dL 31 - 37 g/dL [employer] Work Phone: MCV (RBC) [Entitic vol] 97.0 fL 80 - 100 fL [employer] Work Phone: Monocytes/100 WBC (Bld) 12 % High 5 - 9 % [employer] Work Phone: NRBC Automated NOT REPORTED per 100 WBC [facility] Work Phone: Platelet distribution width (Bld) [Ratio] 13.7 % 12.1 - 15.2 % [employer] Work Phone: Platelet Estimate NOT REPORTED [employer] Work Phone: Platelet mean volume (Bld) [Entitic vol] NOT REPORTED 6.0 - 12.0 fL [employer] Work Phone: Platelets (Bld) [#/Vol] 146 10*3/uL [employer] Work Phone: RBC (Bld) [#/Vol] 4.76 10*6/uL 4.5 - 5.9 m/uL [employer] Work Phone: RBC (Bld) [#/Vol] NOT REPORTED [employer] Phone: Segmented neutrophils/100 WBC (Bld) 62 % 39 - 75 % [employer] Work Phone: Segs Absolute 2.40 [facility] [employer] Work Phone: WBC (Bld) [#/Vol] 3.9 10*3/uL [employer] Work Phone: WBC (Bld) [#/Vol] NOT REPORTED [employer] Phone: [employer] Work Phone: CBC with Diffon 06-19-2021 Abs. Basophil 0.00 k/uL Normal 0.0-0.2 [facility] Comment on above: Performed By: #### C P, CDP #### [facility] [address] [place] [address] Sinter Feeder: Reyna Hung MD Abs.Neutrophil (Seg) 2.40 k/uL Normal 2.1-6.5 [facility] Comment on above: Performed By: #### C P, CDP #### [facility] [address] [place] [address] Sinter Feeder: Reyna Hung MD Auto Diff Performed YES Normal [facility] Comment on above: Performed By: #### C P, CDP #### [facility] [address] [place] [address] Sinter Feeder: Reyna Hung MD Basophils/100 WBC (Bld) 1 % Normal 0-2 M [facility] Comment on above: Performed By: #### C P, CDP #### [facility] [address] [id number] [employer]inter Feeder: Reyna Hung MD Eosinophils (Bld) [#/Vol] 0.00 10*3/uL Normal 0.0-0.4 [facility] Comment on above: Performed By: #### C P, CDP #### [facility] [address] [place] [address] [employer]inter Feeder: Reyna Hung MD Eosinophils/100 WBC (Bld) 0 % Normal 0-5 [facility] Comment on above: Performed By: #### C P, CDP #### [facility] [address] [place] [address] Sinter Feeder: Reyna Hung MD Erythrocyte distribution width (RBC) [Ratio] 13.7 % Normal 12.1-15.2 [facility] Comment on above: Performed By: #### C P, CDP #### [facility] [address] [place] [address] Sinter Feeder: Reyna Hung MD Hematocrit (Bld) [Volume fraction] 46.2 % Normal 41-53 [facility] Comment on above: Performed By: #### C P, CDP #### [facility] [address] [place] [address] Sinter Feeder: Reyna Hung MD Hemoglobin (Bld) [Mass/Vol] 15.8 g/dL Normal 13.5-17.5 [facility] Comment on above: Performed By: #### C P, CDP #### [facility] [address] [place] [address] Sinter Feeder: Reyna Hung MD Lymphocytes (Bld) [#/Vol] 1.00 10*3/uL Normal 1.0-4.8 [facility] Comment on above: Performed By: #### C P, CDP #### [facility] [address] [place] [address] Sinter Feeder: Reyna Hung MD Lymphocytes/100 WBC (Bld) 25 % Normal 13-44 [facility] Comment on above: Performed By: #### C P, CDP #### [facility] [address] [place] [address] Sinter Feeder: Reyna Hung MD MCH (RBC) [Entitic mass] 33.2 pg Normal 26-34 [facility] Comment on above: Performed By: #### C P, CDP #### [facility] [address] [place] [address] Sinter Feeder: Reyna Hung MD MCHC (RBC) [Mass/Vol] 34.2 g/dL Normal 31-37 [facility] Comment on above: Performed By: #### C P, CDP #### [facility] [address] [place] [address] Sinter Feeder: Reyna Hung MD MCV (RBC) [Entitic vol] 97.0 fL Normal 80-100 M [facility] Comment on above: Performed By: #### C P, CDP #### [facility] [address] [place] [address] Sinter Feeder: Reyna Hung MD Monocytes (Bld) [#/Vol] 0.40 10*3/uL Normal 0.0-1.0 [facility] Comment on above: Performed By: #### C P, CDP #### [facility] [address] [place], [place] [id number] Sinter Feeder: Reyna Hung MD Monocytes/100 WBC (Bld) 12 % High 5-9 M [facility] Comment on above: Performed By: #### C P, CDP #### [facility] [address] [place], [place] [id number] Sinter Feeder: Reyna Hung MD Neutrophil (Seg) 62 % Normal 39-75 [facility] Comment on above: Performed By: #### C P, CDP #### [facility] [address] [place], [place] [id number] ([phone] Sinter Feeder: Reyna Hung MD Platelets (Bld) [#/Vol] 146 10*3/uL Normal 140-450 [facility] Comment on above: Performed By: #### C P, CDP #### [facility] [address] [place] [address] Sinter Feeder: Reyna Hung MD RBC (Bld) [#/Vol] 4.76 10*6/uL Normal 4.5-5.9 [facility] Comment on above: Performed By: #### C P, CDP #### [facility] [address] [place] [address] Sinter Feeder: Reyna Hung MD WBC (Bld) [#/Vol] 3.9 10*3/uL Normal 3.5-11.0 [facility] Comment on above: Performed By: #### C P, CDP #### [facility] [address] [place] [address] Sinter Feeder: Reyna Hung MD Abs.Imm.Granulocyte NOT REPORTED Normal 0.00-0.30 [facility] Comment on above: Performed By: #### C P, CDP #### [facility] [address] [place] [address] Sinter Feeder: Reyna Hung MD Immature Granulocyte NOT REPORTED Normal 0 [facility] Comment on above: Performed By: #### C P, CDP #### [facility] [address] [place] [address] Sinter Feeder: Reyna Hung MD MPV NOT REPORTED Normal 6.0-12.0 [facility] Comment on above: Performed By: #### C P, CDP #### [facility] [address] [place] [address] Sinter Feeder: Reyna Hung MD NRBC Automated NOT REPORTED Normal [facility] Comment on above: Performed By: #### C P, CDP #### [facility] [address] [place] [address] Sinter Feeder: Reyna Hung MD Platelet Estimate NOT REPORTED Normal [facility] Comment on above: Performed By: #### C P, CDP #### [facility] [address] [place] [address] Sinter Feeder: Reyna Hung MD RBC morphology finding Nom (Bld) NOT REPORTED Normal [facility] Comment on above: Performed By: #### C P, CDP #### [facility] [address] [place] [address] Sinter Feeder: Reyna Hung MD WBC Morphology NOT REPORTED Normal [facility] Comment on above: Performed By: #### C P, CDP #### [facility] [address] [place] [address] Sinter Feeder: Reyna Hung MD COVID-19, RapidOrdered By: Mavis Barrett on 06-19-2021 Interpretation and review of laboratory results Abnormal [facility] Work Phone: SARS-CoV-2 (COVID-19) RNA ONEYDA+probe Ql (Unsp spec) Detected Abnormal Not Detected [facility] Work Phone: Comment on above: Rapid NAAT: The specimen is POSITIVE for SARS-Cov-2, the novel coronavirus associated with COVID-19. This test has been authorized by the FDA under an Emergency Use Authorization (EUA) for use by authorized laboratories. The ID NOW COVID-19 assay is designed to detect the virus that causes COVID-19 in patients with signs and symptoms of infection who are suspected of COVID-19. An individual without symptoms of COVID-19 and who is not shedding SARS-CoV-2 virus would expect to have a negative (not detected) result in this assay. Fact sheet for Healthcare Providers: https://www.fda.gov/media/032069/download Fact sheet for Patients: https://www.fda.gov/media/567603/download Methodology: Isothermal Nucleic Acid Amplification Results reported to the appropriate Health Department Specimen Description .NASOPHARYNGEAL SWAB [facility] Work Phone: [facility] [employer] Phone: Comp Metabolic Profon 2020 (cont.) Normal [facility] Comment on above: Result Comment: Aver age GFR for 50-59 years old: 93 mL/min/1.73sq m Chronic Kidney Disease: <60 mL/min/1.73sq m Kidney failure: <15 mL/min/1.73sq m eGFR calculated using average adult body mass. Additional eGFR calculator available at: http://www.[employer]/multiple_crcl_2012.htm Performed By: #### C P, CDP #### [facility] [address] [place] [address] Sinter Feeder: Reyna Hung MD Albumin [Mass/Vol] 3.8 g/dL Normal 3.5-5.2 [facility] Comment on above: Performed By: #### C P, CDP #### [facility] [address] [place] [address] Sinter Feeder: Reyna Hung MD Alkaline Phos 98 U/L Normal 40-129 [facility] Comment on above: Performed By: #### C P, CDP #### [facility] [address] [place], [place] [id number] [employer]eder: Reyna Hung MD ALT [Catalytic activity/Vol] 14 U/L Normal 5-41 [facility] Comment on above: Performed By: #### C P, CDP #### [facility] [address] [place], [place] [id number] [employer]inter Feeder: Reyna Hung MD Anion gap [Moles/Vol] 11 mmol/L Normal 9-17 [facility] Comment on above: Performed By: #### C P, CDP #### [facility] [address] [place], [place] [id number] [employer]eder: Reyna Hung MD AST [Catalytic activity/Vol] 23 U/L Normal <40 [facility] Comment on above: Performed By: #### C P, CDP #### [facility] [address] [place], [place] [id number] [employer]inter [employer]eder: Reyna Hung MD Bilirubin [Mass/Vol] 0.36 mg/dL Normal 0.30-1.20 [facility] Comment on above: Performed By: #### C P, CDP #### [facility] [address] [place] [address] Sinter Feeder: Reyna Hung MD BUN/CRE Ratio 14 Normal 9-20 [facility] Comment on above: Performed By: #### C P, CDP #### [facility] [address] [place], [place] [id number] Sinter Feeder: Reyna Hung MD Calcium [Mass/Vol] 8.9 mg/dL Normal 8.6-10.4 [facility] Comment on above: Performed By: #### C P, CDP #### [facility] [address] [place], [place] [id number] S[employer]eder: Reyna Hung MD Chloride [Moles/Vol] 103 mmol/L Normal 98-107 [facility] Comment on above: Performed By: #### C P, CDP #### [facility] [address] [place] [address] Sinter Feeder: Reyna Hung MD CO2 [Moles/Vol] 25 mmol/L Normal 20-31 [facility] Comment on above: Performed By: #### C P, CDP #### [facility] [address] [place], [place] [id number] [employer]eder: Reyna Hung MD Creatinine [Mass/Vol] 1.19 mg/dL Normal 0.70-1.20 [facility] Comment on above: Performed By: #### C P, CDP #### [facility] [address] [place] [address] Sinter Feeder: Reyna Hung MD GFR, Amer >60 Normal >60 [facility] Comment on above: Performed By: #### C P, CDP #### [facility] [address] [place] [address] S[employer] Feeder: Reyna Hung MD GFR,non Amer >60 Normal >60 [facility] Comment on above: Performed By: #### C P, CDP #### [facility] [address] [place] [address] Sinter Feeder: Reyna Hung MD Glucose [Mass/Vol] 97 mg/dL Normal 70-99 [facility] Comment on above: Performed By: #### C P, CDP #### [facility] [address] [place] [address] Sinter Feeder: Reyna Hung MD Potassium [Moles/Vol] 4.4 mmol/L Normal 3.7-5.3 [facility] Comment on above: Performed By: #### C P, CDP #### [facility] [address] [place] [address] Sinter Feeder: Reyna Hung MD Protein [Mass/Vol] 6.8 g/dL Normal 6.4-8.3 [facility] Comment on above: Performed By: #### C P, CDP #### [facility] [address] [place], [place] [id number] Sinter Feeder: Reyna Hung MD Sodium [Moles/Vol] 139 mmol/L Normal 135-144 [facility] Comment on above: Performed By: #### C P, CDP #### [facility] [address] [place], [place] [id number] Sinter Feeder: Reyna Hung MD Urea nitrogen [Mass/Vol] 17 mg/dL Normal 6-20 [facility] Comment on above: Performed By: #### C P, CDP #### [facility] [address] [place], [place] [id number] Sinter Feeder: Reyna Hung MD Albumin/Glob Ratio NOT REPORTED Normal 1.0-2.5 [facility] Comment on above: Performed By: #### C P, CDP #### [facility] [address] [place], [place] [id number] Sinter Feeder: Reyna Hung MD Staging: NOT REPORTED Normal [facility] Comment on above: Performed By: #### C P, CDP #### [facility] [address] [place], [place] [id number] Sinter Feeder: Reyna Hung MD Comprehensive Metabolic Pane lOrdered By: Trudy Barrett on 06-19-2021 Albumin [Mass/Vol] 3.8 g/dL 3.5 - 5.2 g/dL [facility] [employer] Phone: Albumin/Globulin Ratio NOT REPORTED [facility] [employer] Phone: ALP (Bld) [Catalytic activity/Vol] 98 U/L 40 - 129 U/L [facility] Phone: ALT [Catalytic activity/Vol] 14 U/L 5 - 41 U/L [facility] [employer] Phone: Anion gap [Moles/Vol] 11 mmol/L 9 - 17 mmol/L [employer] Phone: AST [Catalytic activity/Vol] 23 U/L <40 [employer] Phone: Bilirubin [Mass/Vol] 0.36 mg/dL 0.30 - 1.20 mg/dL [employer] Phone: Calcium [Mass/Vol] 8.9 mg/dL 8.6 - 10. 4 mg/dL [employer] Phone: Chloride [Moles/Vol] 103 mmol/L 98 - 10 7 mmol/L [employer] Phone: CO2 [Moles/Vol] 25 mmol/L 20 - 31 mmol/L [employer] Phone: Creatinine [Mass/Vol] 1.19 mg/dL 0.70 - 1.20 mg/dL [employer] Phone: Free PSA/Total PSA [Mass fraction] 6.8 g/dL 6.4 - 8.3 g/dL [employer] Phone: GFR >60 >60 mL/min [facility] Phone: GFR Non- >60 >60 mL/min [employer] Phone: GFR/1.73 sq M.predicted MDRD (S/P/Bld) [Vol rate/Area] [employer] Phone: Comment on above: Average GFR for 50-5 9 years old: 93 mL/min/1.73sq m Chronic Kidney Disease: <60 mL/min/1.73sq m Kidney failure: <15 mL/min/1.73sq m eGFR calculated using average adult body mass. Additional eGFR calculator available at: http://www.[employer]/multiple_crcl_2012.htm GFR/1.73 sq M.predicted MDRD (S/P/Bld) [Vol rate/Area] NOT REPORTED [employer] Phone: Glucose [Mass/Vol] 97 mg/dL 70 - 99 mg/dL [facility] [employer] Phone: Potassium [Moles/Vol] 4.4 mmol/L 3.7 - 5.3 mmol/L [facility] [employer] Phone: Sodium [Moles/Vol] 139 mmol/L 135 - 144 mmol/L [facility] [employer] Phone: Urea nitrogen (BldV) [Mass/Vol] 17 mg/dL 6 - 20 mg/dL [facility] [employer] Phone: Urea nitrogen/Creatinine (Bld) [Mass ratio] 14 [facility] [employer] Phone: [facility] [employer] Phone: [id number] 06-19-2021 SARS-CoV-2 (COVID-19) RNA ONEYDA+probe Ql (Unsp spec) Detected Abnormal [facility] Comment on above: Result Comment: Rapid NAAT: The specimen is POSITIVE for SARS-Cov-2, the novel coronavirus associated with COVID-19. This test has been authorized by the FDA under an Emergency Use Authorization (EUA) for use by authorized laboratories. The ID NOW COVID-19 assay is designed to detect the virus that causes COVID-19 in patients with signs and symptoms of infection who are suspected of COVID-19. An individual without symptoms of COVID-19 and who is not shedding SARS-CoV-2 virus would expect to have a negative (not detected) result in this assay. Fact sheet for Healthcare Providers: https://www.fda.gov/media/976438/download Fact sheet for Patients: https://www.fda.gov/media/442999/download Methodology: Isothermal Nucleic Acid Amplification Results reported to the appropriate Health Department Performed By: #### C OVRB #### [facility] [address] [place] [address] Sinter Feeder: Reyna Hung MD XR CHEST PORTABLEon 06-19-20 21 XR CHEST PORTABLE EXAM: XR CHEST PORTABLE HISTORY: Reason for exam:->Covid 19 positive, SOB COMPARISON: 09/04/2012. TECHNIQUE: AP portable chest 1740 hours. FINDINGS: There is a large bulla measuring 16 cm in diameter that is not significantly changed from 2012. Emphysematous overinflation. Chronic prominence of interstitial lung markings. Crowding of lung markings at the right base unchanged. Small sized heart. No overt pneumonia. IMPRESSION: Emphysema with a large bulla right upper lung similar to 2012. No overt pneumonia. Interpreted by: Alexis Rojo Jr., MD Signed by: Alexis Rojo Jr., MD 06/19/21 Final result Normal [facility] XR CHEST PORTABLEOrdered By: Trudy Barrett on 06-19-2021 SARS-CoV-2 (COVID-19) Ab IA Ql EXAM: XR CHEST PORTABLE HISTORY: Reason for exam:->Covid 19 positive, SOB COMPARISON: 09/04/2012. TECHNIQUE: AP portable chest 1740 hours. FINDINGS: There is a large bulla measuring 16 cm in diameter that is not significantly changed from 2012. Emphysematous overinflation. Chronic prominence of interstitial lung markings. Crowding of lung markings at the right base unchanged. Small sized heart. No overt pneumonia. [employer] Phone: Emphysema with a large bulla right upper lung similar to 2012. No overt pneumonia. [employer] Phone: Zain, pn Incoming Radiant Results From [employer] - 06/19/2021 6:09 PM EDT EXAM: XR CHEST PORTABLE HISTORY: Reason for exam:->Covid 19 positive, SOB COMPARISON: 09/04/2012. TECHNIQUE: AP portable chest 1740 hours. FINDINGS: There is a large bulla measuring 16 cm in diameter that is not significantly changed from 2012. Emphysematous overinflation. Chronic prominence of interstitial lung markings. Crowding of lung markings at the right base unchanged. Small sized heart. No overt pneumonia. IMPRESSION: Emphysema with a large bulla right upper lung similar to 2012. No overt pneumonia. [employer] Phone: [employer] Phone: Vital Signs Date Time Vital Sign Value Performing Clinician Dale tolbert 05-30-2022 14:24-0400 Body height 177.8 cm Rodrigo Beyer MD Work Phone: [employer] 05-30-2022 14:24-0400 Body mass index (BMI) [Ratio] 20.81 kg/m2 Rodrigo Beyer MD Work Phone: [employer] 05-30-2022 14:24-0400 Body temperature 98.01 [degF] Rodrigo Beyer MD Work Phone: [employer] 05-30-2022 14:24-0400 Body weight 65.77 kg Rodrigo Beyer MD Work Phone: [employer] 05-30-2022 14:24-0400 Diastolic blood pressure 75 mm[Hg] Rodrigo Beyer MD Work Phone: [employer] 05-30-2022 14:24-0400 Heart rate 82 /min Rodrigo Beyer MD Work Phone: [employer] 05-30-2022 14:24-0400 Respiratory rate 16 /min Rodrigo Beyer MD Work Phone: [employer] 05-30-2022 14:24-0400 SaO2% (BldA) [Mass fraction] 97 % Rodrigo Beyer MD Work Phone: [employer] 05-30-2022 14:24-0400 Systolic blood pressure 112 mm[Hg] Rodrigo Beyer MD Work Phone: [employer] 06-19-2021 17:12-0400 Body height 177.8 cm Trudy Barrett MD Work Phone: [employer] Work Phone: 06-19-2021 17:12-0400 Body mass index (BMI) [Ratio] 18.17 kg/m2 Trudy Barrett MD Work Phone: [employer] Work Phone: 06-19-2021 17:12-0400 Body temperature 97.9 [degF] Trudy Barrett MD Work Phone: [employer] Work Phone: 06-19-2021 17:12-0400 Body weight 57.42 kg Truyd Barrett MD Work Phone: [employer] Work Phone: 06-19-2021 17:12-0400 Diastolic blood pressure 50 mm[Hg] Trudy Barrett MD Work Phone: [employer] Work Phone: 06-19-2021 17:12-0400 Heart rate 70 /min Trudy Barrett MD Work Phone: [employer] Work Phone: 06-19-2021 17:12-0400 Respiratory rate 20 /min Trudy Barrett MD Work Phone: [employer] Work Phone: 06-19-2021 17:12-0400 SaO2% (BldA) [Mass fraction] 97 % Trudy Barrett MD Work Phone: [employer] Work Phone: 06-19-2021 17:12-0400 Systolic blood pressure 88 mm[Hg] Trudy Barrett MD Work Phone: [employer] Work Phone: Encounters Encounter Date Encounter Type Care Provider Facility Start: 04-16-2025 ambulatory Remus Ungur Facility:[facility] Start: 05-30-2022 Emergency department patient visit RODRIGO BEYER [facility] Start: 05-30-2022 End: 05-30-2022 Emergency department patient visit Rodrigo Beyer MD Work Phone: [facility] ED Comment on above: Thrombophlebitis of superficial veins of left lower extremity (Primary Dx) Start: 06-19-2021 End: 06-19-2021 Emergency department patient visit [facility] Start: 06-19-2021 End: 06-19-2021 Emergency department patient visit Trudy Barrett MD Work Phone: [facility] ED Comment on above: COVID-19 virus infec tion (Primary Dx) Procedures Date Procedure Procedure Detail Performing Clinician Start: 05-30-2022 Dup-scan xtr veins unilateral/limited study Rodrigo Beyer MD Work Phone: Start: 06-19-2021 Comprehensive metabo lic panel Trudy Barrett MD Work Phone: Start: 06-19-2021 Radiologic exam ches t single view Trudy Barrett MD Work Phone: Start: 06-19-2021 COVID-19, RAPID Trudy Barrett MD Work Phone: Plan of Treatment Date Care Activity Detail Author Start: 06-19-2022 Influenza vaccination Flu vaccine (# 1) [facility] Start: 06-19-2021 Influenza vaccination Flu vaccine (# 1) [facility] [employer] Work Phone: Start: 2018 Shingles Vaccine (1 of 2) Stephenson gles Vaccine (1 of 2) [facility] Start: 2013 Screening for malign ant neoplasm of colon [facility] Start: 2008 Lipid panel [facility] Start: 1987 DTaP/Tdap/Td vaccine (1 - Tdap) DTaP/Tdap/Td vaccine (1 - Tdap) [facility] Start: 1986 Hepatitis C screening Hepatitis C sc reen [facility] Start: 1983 HIV screening HIV screen [facility] Start: 1980 COVID-19 Vaccine (1) COVID-19 Vaccin e (1) [employer] Work Phone: Start: 1980 Depression Screen Depression Screen [facility] Start: 1974 Pneumococcal 0-64 ye ars Vaccine (1 - PCV) Pneumococcal 0-64 years Vaccine (1 - PCV) [employer] Start: 03-22-1969 COVID-19 Vaccine (#1) COVID-19 Vacci ne (#1) [employer] Start: 1968 Hepatitis C screening Hepatitis C sc peter [employer] Phone: Payers Date Payer Category Payer Self-pay 2021 Unknown [employer] [id number] 2021-Present [address] [place] [address] [id number] Unknown [id number] Social History Date Type Detail Facility Start: 06-19-2021 End: 05-30-2022 Tobacco smoking status NHIS Current every day smoker [facility] Start: 06-19-2021 End: 05-30-2022 Cigarettes smoked current (pack per day) - Reported [employer] Phone: Start: 06-19-2021 End: 05-30-2022 Alcohol intake Current drinker of alcohol (finding) [employer] Phone: Start: 07-17-2017 [facility] Start: 1970 [facility] Exposure to SARS-CoV -2 (event) Not sure [employer] History of tobacco use Cigarette Smoker [facility] [place] Phone: Start: 05-30-2022 Tobacco use and exposure Smoke less tobacco non-user [employer] Phone: Start: 05-20-2022 End: 05-30-2022 Exposure to SARS-CoV-2 (event) Yes [facility] Work Phone: Clinical Note 07-05-2021 Note Date & Type Note Facility 07-05-2021 Note Infectious Disease COVID-19 Frequently Asked Questions COVID-19 (coronavirus disease) is an infection that is caused by a large family of viruses. Some viruses cause illness in people and others cause illness in animals like camels, cats, and bats. In some cases, the viruses that cause illness in animals can spread to humans. Where did the coronavirus come from? In September 2019, [place] told the World Health Organization (WHO) of several cases of lung disease (human respiratory illness). These cases were linked to an open seafood and livestock market in the city of [facility]. The link to the seafood and livestock market suggests that the virus may have spread from animals to humans. However, since that first outbreak in September, the virus has also been shown to spread from person to person. What is the name of the disease and the virus? Disease name Early on, this disease was called novel coronavirus. This is because scientists determined that the disease was caused by a new (novel) respiratory virus. The World Health Organization (WHO) has now named the disease COVID-19, or coronavirus disease. Virus name The virus that causes the disease is called severe acute respiratory syndrome coronavirus 2 (SARS-CoV-2). More information on disease and virus naming World Health Organization (WHO): www.who.int/emergencies/diseases/novel-c oronavirus-2019/technical-guidance/khoi v-dbr-qtxpdiyxlfi-disease-(covid-2019)-a ki-qrr-ttutb-dacu-dvzggx-df Who is at risk for complications from coronavirus disease? Some people may be at higher risk for complications from coronavirus disease. This includes older adults and people who have chronic diseases, such as heart disease, diabetes, and lung disease. If you are at higher risk for complications, take these extra precautions: ? Avoid close contact with people who are sick or have a fever or cough. Stay at least 3?6 ft (1?2 m) away from them, if possible. ? Wash your hands often with soap and water for at least 20 seconds. ? Avoid touching your face, mouth, nose, or eyes. ? Keep supplies on hand at home, such as food, medicine, and cleaning supplies. ? Stay home as much as possible. ? Avoid social gatherings and travel. How does coronavirus disease spread? The virus that causes coronavirus disease spreads easily from person to person (is contagious). There are also cases of community-spread disease. This means the disease has spread to: ? People who have no known contact with other infected people. ? People who have not traveled to areas where there are known cases. It appears to spread from one person to another through droplets from coughing or sneezing. Can I get the virus from touching surfaces or objects? There is still a lot that we do not know about the virus that causes coronavirus disease. Scientists are basing a lot of information on what they know about similar viruses, such as: ? Viruses cannot generally survive on surfaces for long. They need a human body (host) to survive. ? It is more likely that the virus is spread by close contact with people who are sick (direct contact), such as through: ? Shaking hands or hugging. ? Breathing in respiratory droplets that travel through the air. This can happen when an infected person coughs or sneezes on or near other people. ? It is less likely that the virus is spread when a person touches a surface or object that has the virus on it (indirect contact). The virus may be able to enter the body if the person touches a surface or object and then touches his or her face, eyes, nose, or mouth. Can a person spread the virus without having symptoms of the disease? It may be possible for the virus to spread before a person has symptoms of the disease, but this is most likely not the main way the virus is spreading. It is more likely for the virus to spread by being in close contact with people who are sick and breathing in the respiratory droplets of a sick person's cough or sneeze. What are the symptoms of coronavirus disease? Symptoms vary from person to person and can range from mild to severe. Symptoms may include: ? Fever. ? Cough. ? Tiredness, weakness, or fatigue. ? Fast breathing or feeling short of breath. These symptoms can appear anywhere from 2 to 14 days after you have been exposed to the virus. If you develop symptoms, call your health care provider. People with severe symptoms may need hospital care. If I am exposed to the virus, how long does it take before symptoms start? Symptoms of coronavirus disease may appear anywhere from 2 to 14 days after a person has been exposed to the virus. If you develop symptoms, call your health care provider. Should I be tested for this virus? Your health care provider will decide whether to test you based on your symptoms, history of exposure, and your risk factors. How does a health care provider test for this virus? Health care providers will collect samples to send for testing. Samples may in (more content not included)... [facility] Evaluation note Note Date & Type Note Facility Evaluation note Diagnosis COVID-19 virus infection- Primary documented in this encounter [employer] Phone: Evaluation note Note Date & Type Note Facility Evaluation note Diagnosis Thrombophlebitis of superficial veins of left lower extremity- Primary documented in this encounter [employer] Phone: Hospital Discharge instructions Attachments Note Date & Type Note Facility Hospital Discharge instructions The following attachments cannot be sent through Care Everywhere.Coronavirus Disease (COVID-19): General Info (Slovenian)documented in this encounter [employer] Phone: Hospital Discharge instructions Attachments Note Date & Type Note Facility Hospital Discharge instructions The following attachments cannot be sent through Care Everywhere.Thrombophlebitis: Superficial (Slovenian)documented in this encounter [employer] Phone: Advance Directives No Advanced Directives Records FoundDocuments on File Type Date Recorded 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 ACP-Advance Directive ACP-Power of [employer]er Summary Purpose Family History No Family History Records FoundNo Family History Records FoundNo Family History Records Found Additional Source Comments Reason for Visit (unrecogniz ed section and content) Reason Comments Nausea Chills Generalized Body Aches Reason Comments Leg Pain POSTERIOR LEFT KNEE RED AND SWOLLEN FOR A FEW DAYS Ordered Prescriptions (unrec ognized section and content) Prescription Sig Dispensed Refills Start Date End Da te ivermectin 3 MG tablet 4 tablets daily x5 days 20 tablet 0 06/19/2021 dexamethasone (DECADRON) 6 MG tablet Take 1 tablet by mouth daily (with breakfast) for 5 days 5 tablet 0 06/19/2021 06/24/2021 Prescription Sig Dispensed Refills Start Date End Da te ketorolac (TORADOL) 10 MG tablet Take 1 tablet by mouth every 8 hours as needed for Pain 15 tablet 0 05/30/2022 clindamycin (CLEOCIN) 300 MG capsule Take 1 capsule by mouth in the morning and 1 capsule at noon and 1 capsule before bedtime. Do all this for 10 days. . 30 capsule 0 05/30/2022 06/09/2022 Scheduled Active and Recently Administ ered Medications (unrecognized section and content) Medication Order 06/17/2021 06/18/2021 06/19/2021 0.9 % sodium chloride bolus (COMPLETED) 1,000 mL (17.4 mL/kg), IntraVENous, at 1,000 mL/hr, Administer over 1 Hours, ONCE, On Thu06/19/21 at 1745, For 1 dose, For IV Hydration 1755 (New Bag - Prov ider: Angela Albright RN)1920 (Stopped - Provider: Angela Albright RN) dexamethasone (PF) (DECADRON) injection 6 mg (COMPLETED) 6 mg, IntraVENous, ONCE, On Thu06/19/21 at 1745, For 1 dose 1755 (Given - Provid er: Angela Albright RN) Scheduled Medication Order 05/28/2022 05/29/2022 05/30/2022 clindamycin (CLEOCIN) capsule 300 mg (COMPLETED) 300 mg, Oral, ONCE, 1 dose, On Thu05/30/22 at 1445, Antimicrobial Indications: Skin and Soft Tissue Infection 1514 (Given - Provid er: Suzy Segura RN) ketorolac (TORADOL) injection 30 mg (COMPLETED) Ketorolac is contraindicated in patients with advanced renal impairment and in patients at risk of renal failure due to volume depletion. For 65 years of age and older OR weight less than 50 kg, use 15 mg IV every 6 hours; MAX dose: 60 mg/day. Dose greater than 30 mg must be administered via intramuscular route. Do not administer for more than 5 days., 30 mg, IntraMUSCular, ONCE, 1 dose, On Thu05/30/22 at 1445 1514 (Given - Provid er: Suzy Segura RN) (unrecognized sect ion and content) No Status Records FoundNo Status Records FoundNo Status Records Found INFORMATION SOURCE (unrecogn ized section and content) DATE CREATED AUTHOR 07/12/2021 [facility] DATE CREATED AUTHOR AUTHOR'S ORGANIZ ATION 05/31/2022 Julianne arambula DATE CREATED AUTHOR AUTHOR'S ORGANIZ ATION 04/17/2025 [facility] FOR RECORDS PERTAINING TO PATIENTS WHO ARE OR HAVE BEEN ENROLLED IN A CHEMICAL DEPENDENCY/SUBSTANCEABUSE PROGRAM, SOME INFORMATION MAY BE OMITTED. This clinical summary was aggregated from multiple sources. Caution should be exercised in using it in the provision of clinical care. This summary normalizes information from multiple sources, and as a consequence, information in this document may materially change the coding, format and clinical context of patient data. In addition, data may be omitted in some cases. CLINICAL DECISIONS SHOULD BE BASED ON THE PRIMARY CLINICAL RECORDS. [employer] provides no warranty or guarantee of the accuracy or completeness of information in this document.
[2025-04-17 01:56] VITALS: BP 108/72; PULSE 63; RESP 18; TEMP 37; O2SAT 95
[2025-04-17] MEDS: levoFLOXacin 750 MG Tablet PO (01:56)
[2025-04-17] MEDS: predniSONE 20 MG Tablet 40 MG PO (01:56)
[2025-04-17] MEDS: Albuterol Sulfate 8 gm Inhaler (60 puffs) 2 PUFF INHALATION (01:56)
== END 2025-04-17 02:02 | disposition home or self-care (01) ==
PROVIDERS: Emergency Provider Emergency Medicine; Visit Provider Emergency Medicine
DX: J18.9 Pneumonia, unspecified organism (principal); J44.9 Chronic obstructive pulmonary disease, unspecified; R53.83 Other fatigue; F17.210 Nicotine dependence, cigarettes, uncomplicated; R51.9 Headache, unspecified
CPT/HCPCS: 71045; 80048; 85025; 87631; 94640; 99285; A4216